=== PATIENT | female | born 1990 | race Caucasian/White ===

== ENCOUNTER 2017-05-23 02:45 | Emergency (ER) | payer MEDICAID, OTHER, SELFPAY ==
--- NOTE | 2017-05-23 03:35 | EDM.PDOC ---
ED HPI GENERAL MEDICAL PROBLEM - General Chief Complaint: Abdominal Pain Stated Complaint: ABD PAIN Time Seen by Provider: 05/23/17 03:25 Source of Information: Reports: Patient, Old Records, RN Notes Reviewed History Limitations: Reports: No Limitations - History of Present Illness INITIAL COMMENTS - FREE TEXT/NARRATIVE: -Here with her and son Chief complaint Lower abdominal pain History of present illness 77-year-old female, history of previous , and cholecystectomy, also ovarian cyst last year. New lower abdominal pain for a week, no nausea vomiting or diarrhea. Pain worse supine, worse tonight, keeping her awake. Has not had a bowel movement all week although her appetite and intake have been normal. The takes Mirapex passed a small amount stool without any change in her symptoms. Pain is worsened when she had an ovarian cyst as far she can remember. She had a miscarriage last year Not currently , is menstruating right now, it started with spotting and is becoming more like her normal period now. 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: Neurological History: Reports: CVA Psychiatric History: Reports: Depression Hematologic History: Reports: Idiopathic Thrombocytopenia - Past Surgical History HEENT Surgical History: Reports: Adenoidectomy, Tonsillectomy GI Surgical History: Reports: Cholecystectomy Female Surgical History: Reports: Section Social & Family History - Tobacco Use Smoking Status *Q: Never Smoker Years of Tobacco use: 10 Used Tobacco, but Quit: Yes Month Tobacco Last Used: 11/04 Second Hand Smoke Exposure: Yes - Caffeine Use Caffeine Use: Reports: Coffee - Alcohol Use Days Per Week of Alcohol Use: 0 - Recreational Drug Use Recreational Drug Use: No ED ROS GENERAL - Review of Systems Review Of Systems: See Below Constitutional: Reports: Other (Feeling hot at times). Denies: Fever, Chills HEENT: Reports: No Symptoms Respiratory: Reports: No Symptoms. Denies: Shortness of Breath Cardiovascular: Reports: No Symptoms Endocrine: Reports: No Symptoms GI/Abdominal: Reports: Abdominal Pain, Constipation (Passing less stool than usual). Denies: Diarrhea, Nausea, Vomiting : Reports: No Symptoms, Irregular Menses (LMP 03/13/17; noncontraceptive, was told her progesterone level was low and very unlikely to get , with current partner for 4 years), Other (Currently menses) Musculoskeletal: Reports: No Symptoms Skin: Reports: No Symptoms Neurological: Reports: No Symptoms Psychiatric: Reports: No Symptoms Immunologic: Reports: No Symptoms ED EXAM, GI/ABD - Physical Exam Exam: See Below Exam Limited By: No Limitations General Appearance: Alert, Moderate Distress, Other (Vital signs normal apart from mild elevation of blood pressure, color normal, uncomfortable with movements) Eyes: Bilateral: Normal Appearance Ears: Normal External Exam, Hearing Grossly Normal Nose: Normal Inspection, Normal Mucosa Throat/Mouth: Normal Inspection, Normal Oropharynx Head: Atraumatic, Normocephalic Neck: Normal Inspection. No: Lymphadenopathy (R), Lymphadenopathy (L) Respiratory/Chest: No Respiratory Distress, Lungs Clear, Normal Breath Sounds, No Accessory Muscle Use Cardiovascular: Normal Peripheral Pulses, Regular Rate, Rhythm, No Murmur GI/Abdominal Exam: Normal Bowel Sounds, Soft, No Distention, Tender (Primarily in the suprapubic area). No: Abnormal Bowel Sounds, Mass (Female) Exam: Normal External Exam, Adnexal Tenderness (Right side, reproducible, very tender compared to the left), Vaginal Bleeding (Very scant vaginal discharge/bleeding). No: Uterine Tenderness Back Exam: Normal Inspection Extremities: Normal Inspection, Non-Tender, No Pedal Edema Psychiatric: Normal Affect, Normal Mood Skin Exam: Warm, Dry, Normal Color, No Rash Course - Vital Signs Last Recorded V/S: Last Vital Signs Temp 35.9 C 05/23/17 03:07 Pulse 74 05/23/17 03:07 Resp 18 05/23/17 05:10 BP 123/81 05/23/17 05:10 Pulse Ox 98 05/23/17 05:10 - Orders/Labs/Meds Orders: Active Orders 24 hr Category Date Time Status OB 1st Tri Sgl 1st Gest [US] Stat Exams 05/23/17 04:42 Ordered OB Transvaginal [US] Stat Exams 05/23/17 Ordered Sodium Chloride 0.9% [Saline Flush] Med 05/23/17 03:47 Active 10 ml FLUSH ASDIRECTED PRN Saline Lock Insert [OM.PC] Stat Oth 05/23/17 03:47 Ordered Medication Orders Sodium Chloride (Saline Flush) 10 ml FLUSH ASDIRECTED PRN PRN Reason: Keep Vein Open Labs: Laboratory Tests 05/23/17 05/23/17 05/23/17 Range/Units 03:46 03:46 04:41 WBC 8.0 (4.5-11.0) K/uL RBC 4.77 (3.30-5.50) M/uL Hgb 14.2 (12.0-15.0) g/dL Hct 40.5 (36.0-48.0) % MCV 85 (80-98) fL MCH 30 (27-31) pg MCHC 35 (32-36) % Plt Count 236 (150-400) K/uL Sodium 136 L (140-148) mmol/L Potassium 4.1 (3.6-5.2) mmol/L Chloride 103 (100-108) mmol/L Carbon Dioxide 25 (21-32) mmol/L Anion Gap 12.1 (5.0-14.0) mmol/L BUN 11 (7-18) mg/dL Creatinine 0.8 (0.6-1.0) mg/dL Est Cr Clr Drug Dosing 87.38 mL/min Estimated GFR (MDRD) > 60 (>60) Glucose 106 (74-106) mg/dL Calcium 8.9 (8.5-10.1) mg/dL HCG, Qual Positive H HCG, Quant (0-6) mIU/mL 05/23/17 Range/Units 05:11 WBC (4.5-11.0) K/uL RBC (3.30-5.50) M/uL Hgb (12.0-15.0) g/dL Hct (36.0-48.0) % MCV (80-98) fL MCH (27-31) pg MCHC (32-36) % Plt Count (150-400) K/uL Sodium (140-148) mmol/L Potassium (3.6-5.2) mmol/L Chloride (100-108) mmol/L Carbon Dioxide (21-32) mmol/L Anion Gap (5.0-14.0) mmol/L BUN (7-18) mg/dL Creatinine (0.6-1.0) mg/dL Est Cr Clr Drug Dosing mL/min Estimated GFR (MDRD) (>60) Glucose (74-106) mg/dL Calcium (8.5-10.1) mg/dL HCG, Qual HCG, Quant 57 H (0-6) mIU/mL Meds: Medications Generic Name Dose Route Start Last Admin Trade Name Freq PRN Reason Stop Dose Admin Sodium Chloride 10 ml 05/23/17 03:47 Saline Flush FLUSH ASDIRECTED PRN Keep Vein Open Discontinued Medications Generic Name Dose Route Start Last Admin Trade Name Freq PRN Reason Stop Dose Admin Fentanyl 100 mcg 05/23/17 03:47 05/23/17 03:58 Sublimaze IVPUSH 05/23/17 03:48 100 mcg ONETIME ONE Administration - Re-Assessments/Exams Free Text/Narrative Re-Assessment/Exam: 05/23/17 03:48 27-year-old female with acute lower abdominal pain, one week, much worse tonight with notable tenderness right ovary on pelvic exam. Saline lock, fentanyl 100 g IV 05/23/17 04:43 improved with the pain medication Serum test positive Because of significant ovarian tenderness ultrasound will be ordered to determine if cyst or ectopic present 05/23/17 05:32 05/23/17 06:01 pelvic ultrasound fails to disclose any ectopic or intrauterine , no heart rate seen, there may be some material in the cervix indicating possible miscarriage Serum quantitative hCG is 57, quite low for a last menstrual period of March 17. This is more consistent with miscarriage. Follow-up in 2-3 days is recommended. Return to emergency if worsening symptoms, such as feeling weak, lightheaded, significant abdominal pain or fever Departure - Departure Time of Disposition: 05:54 Disposition: Admitted As Inpatient 66 Condition: Fair Clinical Impression: Threatened miscarriage in early - Discharge Information Prescriptions: Hydrocodone/Acetaminophen [Hydrocodon-Acetaminophen 5-325] 1 - 2 each PO QID PRN #10 tablet PRN Reason: moderate to severe pain Instructions: Threatened Miscarriage Referrals: Juan C Weiss MD [Primary Care Provider] - Forms: ED Department Discharge, ED Return to Work/School Form Additional Instructions: you have bleeding in early . blood test is positive but hCG level today is 57. This is quite low and suggests that you have an unhealthy . The ultrasound does not show any heart beat and there may be some material in the cervix indicating that miscarriage is occurring. There is a very small chance that you may still have a healthy in the very early stage. For this reason is important to get rechecked in the office in 2-3 days. if you develop heavy bleeding to the point of feeling weak or severe abdominal pain that you cannot manage at home, return to emergency for further evaluation - My Orders Last 24 Hours: My Active Orders 05/23/17 OB Transvaginal [US] Stat 05/23/17 03:47 Sodium Chloride 0.9% [Saline Flush] 10 ml FLUSH ASDIRECTED PRN Saline Lock Insert [OM.PC] Stat 05/23/17 04:42 OB 1st Tri Sgl 1st Gest [US] Stat - Assessment/Plan Last 24 Hours: My Active Orders 05/23/17 OB Transvaginal [US] Stat 05/23/17 03:47 Sodium Chloride 0.9% [Saline Flush] 10 ml FLUSH ASDIRECTED PRN Saline Lock Insert [OM.PC] Stat 05/23/17 04:42 OB 1st Tri Sgl 1st Gest [US] Stat
[2017-05-23] MEDS ORDERED: Sodium Chloride 0.9% 10 ML Syringe FLUSH PRN (03:47)
[2017-05-23] MEDS ORDERED: fentaNYL 100 MCG/2 ML SDV IVPUSH ONE (03:47)
[2017-05-23 05:10] VITALS: BP 123/81
== END 2017-05-23 06:07 | disposition home or self-care (01) ==
LOC: JP.ED 02:45
DX: O20.0 Threatened abortion (principal); Z86.73 Personal history of transient ischemic attack (TIA), and cerebral infarction without residual deficits; Z86.718 Personal history of other venous thrombosis and embolism; Z79.82 Long term (current) use of aspirin; Z88.6 Allergy status to analgesic agent; Z90.49 Acquired absence of other specified parts of digestive tract; Z98.890 Other specified postprocedural states; Z91.013 Allergy to seafood
CPT/HCPCS: 36415; 76801; 76817; 80048; 84702; 84703; 85027; 96374; 99284; J3010

== ENCOUNTER 2017-11-02 17:10 | Emergency (ER) | payer OTHER, SELFPAY ==
[2017-11-02 17:52] VITALS: BP 143/94
--- NOTE | 2017-11-02 18:23 | EDM.PDOC ---
ED HPI GENERAL MEDICAL PROBLEM - General Chief Complaint: Chest Pain Stated Complaint: CHEST PAINS Time Seen by Provider: 11/02/17 18:10 Source of Information: Reports: Patient, Old Records, RN History Limitations: Reports: No Limitations - History of Present Illness INITIAL COMMENTS - FREE TEXT/NARRATIVE: 27 yo female presents with a 2 day hx of upper L chest pain. The pain is worse with breathing. She has felt SOB at times. No fever. 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 She denies any recent calf pain or leg swelling. No cough or URI sx's. This is the first time she has been seen for this. The pain began quite intensely after taking a dose of Tylenol #3 for dental pain. She has not taken any additional doses, yet the pain lingers-but not as severely. She discussed this incident with the dentist that prescribed the Tyl #3 and he did not believe the pain in her chest to be related to the medication. 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) Chest Pain Score (Numeric/FACES): 7 - Related Data Allergies Allergy/AdvReac Type Severity Reaction Status Date / Time shellfish derived Allergy Severe Anaphylactic Verified 11/02/17 17:52 Shock acetaminophen [From Percocet] Allergy Vomiting Verified 11/02/17 17:52 oxycodone HCl [From Percocet] Allergy Vomiting Verified 11/02/17 17:52 Home Meds: Home Meds Aspirin [Ecotrin] 325 mg PO DAILY 06/30/13 [History] Past Medical History Cardiovascular History: Reports: Blood Clots/VTE/DVT 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: Neurological History: Reports: CVA Psychiatric History: Reports: Depression Hematologic History: Reports: Idiopathic Thrombocytopenia - Past Surgical History HEENT Surgical History: Reports: Adenoidectomy, Tonsillectomy GI Surgical History: Reports: Cholecystectomy Female Surgical History: Reports: Section Social & Family History - Tobacco Use Smoking Status *Q: Never Smoker Years of Tobacco use: 10 Used Tobacco, but Quit: Yes Month Tobacco Last Used: 11/04 Second Hand Smoke Exposure: Yes - Caffeine Use Caffeine Use: Reports: Coffee - Alcohol Use Days Per Week of Alcohol Use: 0 - Recreational Drug Use Recreational Drug Use: No ED ROS GENERAL - Review of Systems Review Of Systems: See Below Constitutional: Reports: No Symptoms HEENT: Reports: No Symptoms Respiratory: Reports: Shortness of Breath (mild at times), Pleuritic Chest Pain. Denies: Wheezing, Cough, Sputum, Hemoptysis Cardiovascular: Reports: Chest Pain (L upper/anterior). Denies: Claudication, Dyspnea on Exertion, Edema, Lightheadedness, Orthopnea GI/Abdominal: Reports: No Symptoms : Reports: No Symptoms Musculoskeletal: Reports: No Symptoms Skin: Reports: No Symptoms Neurological: Reports: No Symptoms ED EXAM, GENERAL - Physical Exam Exam: See Below Exam Limited By: No Limitations General Appearance: Alert, WD/WN, No Apparent Distress Eye Exam: Bilateral Eye: Normal Inspection Ears: Normal External Exam, Normal Canal, Hearing Grossly Normal Ear Exam: Bilateral Ear: Auricle Normal, Canal Normal Nose: Normal Inspection, Normal Mucosa, No Blood Throat/Mouth: Normal Inspection, Normal Lips, Normal Teeth, Normal Oropharynx, Normal Voice, No Airway Compromise Head: Atraumatic, Normocephalic Neck: Normal Inspection, Supple Respiratory/Chest: No Respiratory Distress, Lungs Clear, Normal Breath Sounds, No Accessory Muscle Use, Other (mild point tenderness L upper/anterior chest) Cardiovascular: Regular Rate, Rhythm, No Edema GI/Abdominal: Normal Bowel Sounds, Soft, Non-Tender, No Distention Back Exam: Normal Inspection. No: CVA Tenderness (R), CVA Tenderness (L) Extremities: Normal Inspection, Normal Range of Motion, Non-Tender, No Pedal Edema Neurological: Alert, Oriented, CN II-XII Intact, Normal Cognition, No Motor/ Sensory Deficits Psychiatric: Normal Affect, Normal Mood Skin Exam: Warm, Dry, Intact, Normal Color, No Rash Lymphatic: No Adenopathy Course - Vital Signs Last Recorded V/S: Last Vital Signs Temp 36.6 C 11/02/17 17:50 Pulse 67 11/02/17 17:50 Resp 16 11/02/17 17:50 BP 143/94 H 11/02/17 17:50 Pulse Ox 99 11/02/17 17:50 - Orders/Labs/Meds Labs: Laboratory Tests 11/02/17 Range/Units 18:28 D-Dimer, Quantitative < 100 (0.0-400.0) ng/mL Departure - Departure Time of Disposition: 19:03 Disposition: Home, Self-Care 01 Condition: Good Clinical Impression: Chest wall pain - Discharge Information Referrals: Juan C Weiss MD [Primary Care Provider] - Forms: ED Department Discharge
== END 2017-11-02 19:29 | disposition home or self-care (01) ==
LOC: JP.ED 17:10
DX: R07.89 Other chest pain (principal); F32.9 Major depressive disorder, single episode, unspecified; Z77.22 Contact with and (suspected) exposure to environmental tobacco smoke (acute) (chronic); Z79.82 Long term (current) use of aspirin; Z88.6 Allergy status to analgesic agent; Z91.013 Allergy to seafood; Z86.73 Personal history of transient ischemic attack (TIA), and cerebral infarction without residual deficits; Z86.718 Personal history of other venous thrombosis and embolism
CPT/HCPCS: 36415; 85379; 99285

== ENCOUNTER 2018-10-26 13:02 | Emergency (ER) | payer OTHER ==
[2018-10-26 13:53] VITALS: BP 136/77
--- NOTE | 2018-10-26 14:04 | CT ---
CT head without contrast. Indication: Arm pain. :Technique: Auto dosage and iterative reconstruction techniques employed. Findings: No hemorrhage. No mass effect. No midline shift. There is again volume loss about the left frontal and left high parietal lobes similar. Calvarium is intact mastoid air cells are clear. Impression: 1. Stable head CT.
--- NOTE | 2018-10-26 14:36 | EDM.PDOC ---
ED HPI GENERAL MEDICAL PROBLEM - General Chief Complaint: Back Pain or Injury Stated Complaint: HEADACHE Time Seen by Provider: 10/26/18 13:40 Source of Information: Reports: Patient, Family History Limitations: Reports: No Limitations - History of Present Illness INITIAL COMMENTS - FREE TEXT/NARRATIVE: 20-year-old female with a history of a left cerebral ischemic stroke while being treated for ITP several years ago presents with a persistent right sided upper thoracic pain radiating into the right neck. Over the last 12 hours however she has developed an increased intensity of headache on the right side and a heavy feeling in her right arm which has chronic hypoesthesia secondary to her stroke. She is very concerned she may be having another cerebral event. She has no visual concerns, nausea or vomiting, pleuritic pain but she has had dental pain on the right side. She has an appointment with the dentist on the which is in 3 days. Onset: Gradual Quality: Reports: Sharp, Stabbing Severity: Moderate Worsens with: Reports: Movement (Rotation of the neck is painful) Neck Pain Score (Numeric/FACES): 8 - Related Data Allergies Allergy/AdvReac Type Severity Reaction Status Date / Time shellfish derived Allergy Severe Anaphylactic Verified 10/26/18 13:18 Shock acetaminophen [From Percocet] Allergy Vomiting Verified 10/26/18 13:18 oxycodone HCl [From Percocet] Allergy Vomiting Verified 10/26/18 13:18 Home Meds: Home Meds Aspirin [Ecotrin] 325 mg PO DAILY 06/30/13 [History] Past Medical History Cardiovascular History: Reports: Blood Clots/VTE/DVT 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: Neurological History: Reports: CVA Psychiatric History: Reports: Depression Hematologic History: Reports: Idiopathic Thrombocytopenia - Past Surgical History HEENT Surgical History: Reports: Adenoidectomy, Tonsillectomy GI Surgical History: Reports: Cholecystectomy Female Surgical History: Reports: Section Social & Family History - Tobacco Use Smoking Status *Q: Never Smoker - Caffeine Use Caffeine Use: Reports: Coffee, Soda - Recreational Drug Use Recreational Drug Use: No ED ROS GENERAL - Review of Systems Review Of Systems: See Below Constitutional: Denies: Fever, Chills HEENT: Reports: Dental Pain (Recurring right maxillary dental pain, none currently) Respiratory: Denies: Shortness of Breath, Pleuritic Chest Pain Cardiovascular: Denies: Chest Pain GI/Abdominal: Denies: Abdominal Pain, Nausea, Vomiting Skin: Reports: No Symptoms. Denies: Rash Neurological: Reports: Headache, Paresthesia (Chronic numbness and paresthesia of the right arm), Pre-Existing Deficit. Denies: Confusion Psychiatric: Reports: No Symptoms ED EXAM, UPPER BACK/NECK PAIN - Physical Exam Exam: See Below Exam Limited By: No Limitations General Appearance: Alert, No Apparent Distress, Anxious Eye Exam: Bilateral Eye: EOMI, Normal Inspection Head Exam: Atraumatic Neck Exam: Painful Range of Motion (Patient is tender down the right paracervical muscles into the right trapezius, increased pain with extension of the neck against resistance), Paraspinous Muscle Tender, Tenderness. No: Spinous Processes Tender Cardiovascular/Respiratory: Regular Rate, Rhythm Neurologic: No Motor/Sensory Deficits (Sensation deficit and slight weakness to the right upper extremity which is chronic and stable), Oriented x 3, Other ( Romberg is negative, no pronator drift) Psychiatric: Anxious Skin Exam: Normal Color, Warm/Dry, Other (No rash over sore area) Course - Vital Signs Last Recorded V/S: Last Vital Signs Temp 96.6 F 10/26/18 13:24 Pulse 80 10/26/18 13:24 Resp 15 10/26/18 13:24 BP 136/77 10/26/18 13:24 Pulse Ox 100 10/26/18 13:24 - Re-Assessments/Exams Free Text/Narrative Re-Assessment/Exam: 10/26/18 15:[address] was done because of her previous history and was stable, showing the deficit in the left hemisphere. 0.5% bupivacaine occipital nerve blocks were done bilaterally on the neck providing her a moderate amount of relief. She was given 10 hydrocodone to take along with anti-inflammatories over the weekend for pain and muscle relaxation, and will recheck next week if not improving satisfactorily. She can return sooner if worsening such as fever or increased neurologic symptoms. Departure - Departure Time of Disposition: 14:49 Disposition: Home, Self-Care 01 Condition: Good Clinical Impression: Tension type headache Qualifiers: Headache chronicity pattern: acute headache Intractability: not intractable Qualified Code(s): G44.209 - Tension-type headache, unspecified, not intractable - Discharge Information Instructions: Musculoskeletal Pain Referrals: Juan C Weiss MD [Primary Care Provider] - Forms: ED Department Discharge Care Plan Goals: 2 Aleve twice daily through the weekend, and add stronger pain medication as directed if needed. Gentle range of motion and stretching may be beneficial and recheck next week if not improving satisfactorily.
== END 2018-10-26 14:49 | disposition home or self-care (01) ==
LOC: JP.ED 13:02
DX: G44.209 Tension-type headache, unspecified, not intractable (principal); Z86.73 Personal history of transient ischemic attack (TIA), and cerebral infarction without residual deficits; Z98.890 Other specified postprocedural states; Z90.49 Acquired absence of other specified parts of digestive tract; Z79.82 Long term (current) use of aspirin; Z91.013 Allergy to seafood; Z88.6 Allergy status to analgesic agent
CPT/HCPCS: 70450; 70450-26; 99284-25

== ENCOUNTER 2019-09-22 09:50 | Emergency (ER) | payer OTHER ==
[2019-09-22 10:04] VITALS: BP 144/81; PULSE 78
--- NOTE | 2019-09-22 10:17 | EDM.PDOC ---
ED HPI GENERAL MEDICAL PROBLEM - General Chief Complaint: Flank Pain Stated Complaint: 6 WEEKS PG - R SIDE ABD PAIN Time Seen by Provider: 09/22/19 10:17 Source of Information: Reports: Patient History Limitations: Reports: No Limitations - History of Present Illness INITIAL COMMENTS - FREE TEXT/NARRATIVE: pt is having rt flnk pain. This started 2-3 daysago but it is more severe today. Onset: Other ( started 2-3 days ago. ) Duration: Hour(s): Location: Reports: Other ( pain in rt flank. ) Associated Symptoms: Reports: No Other Symptoms, Other (pt is 6 weeks ) Right Flank Pain Score (Numeric/FACES): 7 - Related Data Allergies Allergy/AdvReac Type Severity Reaction Status Date / Time shellfish derived Allergy Severe Anaphylactic Verified 09/22/19 10:09 Shock acetaminophen [From Percocet] Allergy Vomiting Verified 09/22/19 10:09 oxycodone HCl [From Percocet] Allergy Vomiting Verified 09/22/19 10:09 Home Meds: Home Meds Aspirin [Ecotrin] 325 mg PO DAILY 06/30/13 [History] Past Medical History HEENT History: Reports: Impaired Vision Cardiovascular History: Reports: Blood Clots/VTE/DVT SAP CONSULTANT History: Reports: , Spontaneous Neurological History: Reports: CVA Psychiatric History: Reports: Depression Hematologic History: Reports: Idiopathic Thrombocytopenia - Past Surgical History HEENT Surgical History: Reports: Adenoidectomy, Tonsillectomy GI Surgical History: Reports: Cholecystectomy Female Surgical History: Reports: Section Social & Family History - Tobacco Use Smoking Status *Q: Never Smoker - Caffeine Use Caffeine Use: Reports: Coffee, Soda Other Caffeine Use: 1 cup of coffee per day - Recreational Drug Use Recreational Drug Use: No ED ROS GENERAL - Review of Systems Review Of Systems: See Below Constitutional: Reports: No Symptoms HEENT: Reports: No Symptoms Respiratory: Reports: No Symptoms Cardiovascular: Reports: No Symptoms Endocrine: Reports: No Symptoms GI/Abdominal: Reports: Other (pt has rt sided flank pain. ) : Reports: No Symptoms Musculoskeletal: Reports: Other (pain in rt flank) Skin: Reports: No Symptoms ED EXAM, GI/ABD - Physical Exam Exam: See Below Text/Narrative:: pt arrived with pain in the rt flank area. This does hurt more when she moves. She is 5-6 weeks . She has not had spotting. Exam Limited By: No Limitations General Appearance: Alert, Anxious, Moderate Distress, Other (pupils are equal and reactive. ) Ears: Normal TMs Nose: Normal Inspection Throat/Mouth: Normal Inspection Head: Atraumatic Neck: Normal Inspection Respiratory/Chest: No Respiratory Distress GI/Abdominal Exam: Soft, Non-Tender (Female) Exam: Deferred Rectal (Female) Exam: Deferred Back Exam: Other (pt has muscle spasm in the rt flank area. This is clearly tender. ) Extremities: Normal Inspection Psychiatric: Normal Affect, Anxious Course - Vital Signs Last Recorded V/S: Last Vital Signs Temp 35.7 C 09/22/19 10:08 Pulse 78 09/22/19 10:08 Resp 16 09/22/19 10:08 BP 144/81 H 09/22/19 10:08 Pulse Ox 100 09/22/19 10:08 - Orders/Labs/Meds Orders: Active Orders 24 hr Category Date Time Status OB Ltd 1 or More Fetus [US] Stat Exams 09/22/19 10:31 Ordered Labs: Laboratory Tests 09/22/19 09/22/19 09/22/19 Range/Units 10:10 10:17 10:17 WBC 5.7 (4.5-11.0) K/uL RBC 4.53 (3.30-5.50) M/uL Hgb 13.8 (12.0-15.0) g/dL Hct 40.1 (36.0-48.0) % MCV 89 (80-98) fL MCH 31 (27-31) pg MCHC 34 (32-36) % Plt Count 228 (150-400) K/uL Neut % (Auto) 56 (36-66) % Lymph % (Auto) 37 (24-44) % [place] % (Auto) 6 (2-6) % Eos % (Auto) 1 L (2-4) % Baso % (Auto) 1 (0-1) % Sodium 138 L (140-148) mmol/L Potassium 3.7 (3.6-5.2) mmol/L Chloride 103 (100-108) mmol/L Carbon Dioxide 24 (21-32) mmol/L Anion Gap 14.7 H (5.0-14.0) mmol/L BUN 8 (7-18) mg/dL Creatinine 0.6 (0.6-1.0) mg/dL Est Cr Clr Drug Dosing 119.47 mL/min Estimated GFR (MDRD) > 60 (>60) Glucose 94 (74-106) mg/dL Calcium 8.9 (8.5-10.1) mg/dL Total Bilirubin 0.4 (0.2-1.0) mg/dL AST 11 L (15-37) U/L ALT 16 (12-78) U/L Alkaline Phosphatase 73 (46-116) U/L Total Protein 7.2 (6.4-8.2) g/dL Albumin 3.6 (3.4-5.0) g/dL Globulin 3.6 H (2.3-3.5) g/dL Albumin/Globulin Ratio 1.0 L (1.2-2.2) HCG, Quant (0-6) mIU/mL Urine Color Yellow (YELLOW) Urine Appearance Clear (CLEAR) Urine pH 6.5 (5.0-8.0) Ur Specific [place] 1.010 (1.008-1.030) Urine Protein Negative (NEGATIVE) mg/dL Urine Glucose (UA) Negative (NEGATIVE) mg/dL Urine Ketones Negative (NEGATIVE) mg/dL Urine Occult Blood Negative (NEGATIVE) Urine Nitrite Negative (NEGATIVE) Urine Bilirubin Negative (NEGATIVE) Urine Urobilinogen 0.2 (0.2-1.0) EU/dL Ur Leukocyte Esterase Negative (NEGATIVE) Urine RBC Not seen (0-5) Urine WBC 0-5 (0-5) Ur Epithelial Cells Few Amorphous Sediment Not seen Urine Bacteria Not seen Urine Mucus Not seen 09/22/19 Range/Units 10:32 WBC (4.5-11.0) K/uL RBC (3.30-5.50) M/uL Hgb (12.0-15.0) g/dL Hct (36.0-48.0) % MCV (80-98) fL MCH (27-31) pg MCHC (32-36) % Plt Count (150-400) K/uL Neut % (Auto) (36-66) % Lymph % (Auto) (24-44) % [place] % (Auto) (2-6) % Eos % (Auto) (2-4) % Baso % (Auto) (0-1) % Sodium (140-148) mmol/L Potassium (3.6-5.2) mmol/L Chloride (100-108) mmol/L Carbon Dioxide (21-32) mmol/L Anion Gap (5.0-14.0) mmol/L BUN (7-18) mg/dL Creatinine (0.6-1.0) mg/dL Est Cr Clr Drug Dosing mL/min Estimated GFR (MDRD) (>60) Glucose (74-106) mg/dL Calcium (8.5-10.1) mg/dL Total Bilirubin (0.2-1.0) mg/dL AST (15-37) U/L ALT (12-78) U/L Alkaline Phosphatase (46-116) U/L Total Protein (6.4-8.2) g/dL Albumin (3.4-5.0) g/dL Globulin (2.3-3.5) g/dL Albumin/Globulin Ratio (1.2-2.2) HCG, Quant 3861 H (0-6) mIU/mL Urine Color (YELLOW) Urine Appearance (CLEAR) Urine pH (5.0-8.0) Ur Specific [place] (1.008-1.030) Urine Protein (NEGATIVE) mg/dL Urine Glucose (UA) (NEGATIVE) mg/dL Urine Ketones (NEGATIVE) mg/dL Urine Occult Blood (NEGATIVE) Urine Nitrite (NEGATIVE) Urine Bilirubin (NEGATIVE) Urine Urobilinogen (0.2-1.0) EU/dL Ur Leukocyte Esterase (NEGATIVE) Urine RBC (0-5) Urine WBC (0-5) Ur Epithelial Cells Amorphous Sediment Urine Bacteria Urine Mucus - Re-Assessments/Exams Free Text/Narrative Re-Assessment/Exam: 09/22/19 11:55 pt has a rising HCG. She has a clear urine. She has normal labs. US shows a intrauterine preg at 5-6 weeks. No hemmorage. Departure - Departure Time of Disposition: 11:50 Disposition: Home, Self-Care 01 Condition: Fair Clinical Impression: Muscle pain, lumbar, 5 weeks gestation of - Discharge Information Referrals: Juan C Weiss MD [Primary Care Provider] - Forms: ED Department Discharge Care Plan Goals: ice or heat tp the rt flank area, tylenol 1-2 tabs q 6h as needed for pain. - My Orders Last 24 Hours: My Active Orders 09/22/19 10:31 OB Ltd 1 or More Fetus [US] Stat - Assessment/Plan Last 24 Hours: My Active Orders 09/22/19 10:31 OB Ltd 1 or More Fetus [US] Stat
--- NOTE | 2019-09-22 12:16 | CRLUS ---
INDICATION: Right flank pain and right lower abdominal pain. Six weeks . FINDINGS: A transabdominal pelvic ultrasound shows a 7.5 mm fluid collection in the fundal portion of the endometrial canal likely representing a gestational sac. No yolk sac or pole identified. The uterus is otherwise unremarkable. Normal appearance of the ovaries with the right ovary measuring 3.1 x 2.4 x 1.8 cm and left ovary measuring 2.5 x 2.0 x 1.7 cm. Color flow images of the ovaries show normal arterial and venous blood flow. No free fluid in the pelvis. IMPRESSION: Early intrauterine with a gestational sac in the uterus measuring 5 weeks 3 days. No yolk sac or pole identified which is not an abnormal finding at this early stage of . Dictated by Noel Dang MD @ 09/22/2019 12:15:36 PM Dictated by: Noel Dang MD @ 09/22/2019 12:15:44 (Electronically Signed)
== END 2019-09-22 12:06 | disposition home or self-care (01) ==
LOC: JP.ED 09:50
DX: O99.89 Other specified diseases and conditions complicating pregnancy, childbirth and the puerperium (principal); M54.5 Low back pain; Z86.718 Personal history of other venous thrombosis and embolism; Z86.73 Personal history of transient ischemic attack (TIA), and cerebral infarction without residual deficits; Z88.8 Allergy status to other drugs, medicaments and biological substances; Z88.5 Allergy status to narcotic agent; Z91.013 Allergy to seafood; Z79.82 Long term (current) use of aspirin; Z3A.01 Less than 8 weeks gestation of pregnancy
CPT/HCPCS: 36415; 76815; 80053; 81001; 84702; 85025; 99284-25